=== PATIENT | female | born 1970 | race Caucasian/White ===

== ENCOUNTER 2018-07-30 16:26 | Emergency (ER) | payer MEDICAID ==
[~2018-07-30] VITALS: Ht 162.6 cm; Wt 74.8 kg
[2018-07-30 16:26] VITALS: BP 130/50
--- NOTE | 2018-07-30 16:26 | NUR ---
PATIENT BIB BLS TO ER BED 4.
--- NOTE | 2018-07-30 16:43 | NUR ---
PATIENT BIB BLS WITH C/O BOTH HANDS AND FINGER PAIN X1 DAY. AAOX4; LUNGS CLEAR BL; HR EVEN AND REGULAR; PT DENIES ANY FEVER, CP, SOB, OR COUGH AT THIS TIME; DENIES N/V/D; SKIN IS PINK/WARM/DRY;PATIENT STATES PAIN OF 5/10 AT THIS TIME; VSS; PATIENT POSITIONED FOR COMFORT; HOB ELEVATED; BEDRAILS UP X2; BED DOWN. ER MD MADE AWARE OF PT STATUS.
--- NOTE | 2018-07-30 17:15 | NUR ---
DINNER TRAY ORDERED.
--- NOTE | 2018-07-30 20:05 | NUR ---
PT REFUSING LABS, MD ORDERS.
--- NOTE | 2018-07-30 20:45 | NUR ---
Patient discharged with v/s stable. Written and verbal after care instructions given and explained. Patient verbalized understanding. Ambulatory with steady gait. All questions addressed prior to discharge. Advised to follow up with PMD. Homeless packet given with resources, bus pass provided. security @ bedside to escort patient out of hospital.
[2018-07-30 21:17] VITALS: BP 104/68
== END 2018-07-30 20:45 | disposition home or self-care (01) ==
LOC: MED 16:26
DX: F41.9 Anxiety disorder, unspecified (principal); Z02.89 Encounter for other administrative examinations; Z59.0 Homelessness
CPT/HCPCS: 99283